=== PATIENT | male | born 1955 | race Two or more races ===

== ENCOUNTER 2017-01-27 07:24 | Emergency (ER) | payer OTHER ==
[~2017-01-27] VITALS: Ht 175.3 cm; Wt 84.1 kg
[2017-01-27] MEDS ORDERED: AMLO5TAB66 PO (07:48)
[2017-01-27] MEDS ORDERED: ALLO100T PO (07:48)
[2017-01-27] MEDS ORDERED: BACTDSB PO (07:48)
[2017-01-27] MEDS ORDERED: LISI-618 PO (07:48)
[2017-01-27] MEDS ORDERED: ATOR20TA65 PO (07:48)
[2017-01-27] MEDS ORDERED: HYDR-4069 PO (07:48)
[2017-01-27] MEDS ORDERED: HYDR12.530 PO (07:48)
[2017-01-27] MEDS ORDERED: TAMS0.4C32 PO (07:48)
[2017-01-27 10:21] VITALS: BP 105/68
== END 2017-01-27 09:04 | disposition home or self-care (01) ==
LOC: EMS 07:27
DX: R10.84 Generalized abdominal pain (principal); K59.00 Constipation, unspecified; E78.00 Pure hypercholesterolemia, unspecified; I10 Essential (primary) hypertension; M10.9 Gout, unspecified; Z86.73 Personal history of transient ischemic attack (TIA), and cerebral infarction without residual deficits
CPT/HCPCS: 74000; 99283